=== PATIENT | female | born 1990 | race Caucasian/White ===

== ENCOUNTER 2017-01-22 21:47 | Emergency (ER) | payer SELFPAY ==
[~2017-01-22] VITALS: Ht 160 cm; Wt 88.6 kg
[~2017-01-22 21:47] MED LIST: NO HOME MEDICATIONS; PRENATAL VITAMI1 TA5 PO; TYLENOL 325MG325 MG PO
[2017-01-22 22:01] VITALS: TEMP 98.6
[2017-01-22] MEDS ORDERED: KLONOPIN 0.5MG0.5 MG PO (22:04)
[2017-01-22 22:54] LABS: PH 5 (5-8); URINE APPEARANCE Hazy; URINE BACTERIA Rare /hpf; URINE BILIRUBIN Negative (NEGATIVE); URINE BLOOD 2+ (NEGATIVE); URINE COLOR Yellow; URINE GLUCOSE Negative (NEGATIVE); URINE KETONE Negative (NEGATIVE); URINE RBC 0-2 /hpf; URINE UROBILINOGEN Negative (NEGATIVE)
[2017-01-22 22:59] LABS: BASO # 0.1 (0.0-0.2); BASO % 0.6 % (0.0-2.0); EOS # 0.2 (0.0-0.7); EOS % 1.3 % (0-4.0); GRAN # 7.2 (1.4-6.5); GRAN % 60.8 % (42.2-75.2); HEMATOCRIT 42.5 % (37.0-47.0); HEMOGLOBIN 14.8 g/dl (12.5-16.0); LYMPH # 3.5 (1.2-3.4); LYMPH % 29.8 % (20.0-51.0); MEAN CELL VOLUME 87 fl (80.0-100.0); MEAN CORPUSCULAR HEMOGLOBIN 30 pg (27.0-31.0); MEAN CORPUSCULAR HGB CONC 35 g/dl (33.0-37.0); MEAN PLATELET VOLUME 9.2 fl (7.4-10.4); MONO # 0.9 (0.1-0.6); MONO % 7.2 % (1.7-9.3); PLATELET COUNT 334 K/mm3 (130-400); RED BLOOD COUNT 4.89 M/mm3 (4.10-5.30); REDCELL DISTRIBUTION WIDTH-CV 12.3 % (11.5-14.5); WHITE BLOOD COUNT 11.9 K/mm3 (4.8-10.8)
[2017-01-22 23:11] LABS: ADJUSTED CALCIUM 8.8 mg/dL (8.4-10.2); ALANINE AMINOTRANSFERASE 21 U/L (9-52); ALBUMIN 4.2 gm/dL (3.5-5.0); ALKALINE PHOSPHATASE 89 U/L (50-136); ANION GAP 11 mmol/L (7-16); BILIRUBIN,TOTAL 0.6 mg/dL (0.0-1.0); BLOOD UREA NITROGEN 13 mg/dL (7-17); CARBON DIOXIDE 26 mmol/L (22-30); CHLORIDE 103 mmol/L (98-107); CREATININE, serum 0.73 mg/dL (0.52-1.25); GLUCOSE 86 mg/dL (74-106); LIPASE 178 U/L (23-300); POTASSIUM 3.7 mmol/L (3.4-5.0); SODIUM 140 mmol/L (137-145); TOTAL PROTEIN 7.3 gm/dL (6.4-8.2)
[2017-01-22 23:12] LABS: C-REACTIVE PROTEIN < 0.5 mg/dL (0.0-0.9)
[2017-01-23 00:45] VITALS: BP 130/67; PULSE 72
[2017-01-23] MEDS ORDERED: NORCO 325 MG-51 TAB PO (19:13)
[2017-01-23] MEDS ORDERED: ZOFRAN 4MG T4 MG/TAB PO (19:14)
[2017-01-23] MEDS ORDERED: NEXIUM 20MG20 MG PO (21:12)
[2017-01-23] MEDS ORDERED: PHENERGAN 25 TA25 MG PO (21:14)
== END 2017-01-23 00:55 | disposition home or self-care (01) ==
LOC: COL.ER 21:47
PROVIDERS: Emergency Medicine
DX: R10.32 Left lower quadrant pain (principal); R19.7 Diarrhea, unspecified; F41.9 Anxiety disorder, unspecified; R63.0 Anorexia
CPT/HCPCS: J2270; J2405; J7030; Q9967

== ENCOUNTER 2017-01-23 19:08 | Emergency (ER) | payer SELFPAY ==
[~2017-01-23] VITALS: Ht 160 cm; Wt 88.6 kg
[~2017-01-23 19:08] MED LIST changes: +KLONOPIN 0.5MG0.5 MG PO
[2017-01-23 19:10] VITALS: TEMP 98.5
[2017-01-23] MEDS ORDERED: NORCO 325 MG-51 TAB PO (19:13)
[2017-01-23] MEDS ORDERED: ZOFRAN 4MG T4 MG/TAB PO (19:14)
[2017-01-23 19:55] LABS: BASO # 0.1 (0.0-0.2); BASO % 0.5 % (0.0-2.0); EOS # 0.1 (0.0-0.7); EOS % 1.4 % (0-4.0); GRAN # 6.2 (1.4-6.5); GRAN % 61.5 % (42.2-75.2); HEMATOCRIT 40.9 % (37.0-47.0); LYMPH # 3.1 (1.2-3.4); LYMPH % 30.9 % (20.0-51.0); MEAN CELL VOLUME 89 fl (80.0-100.0); MEAN CORPUSCULAR HEMOGLOBIN 30 pg (27.0-31.0); MEAN CORPUSCULAR HGB CONC 34 g/dl (33.0-37.0); MEAN PLATELET VOLUME 9.7 fl (7.4-10.4); MONO # 0.5 (0.1-0.6); MONO % 5.4 % (1.7-9.3); PLATELET COUNT 324 K/mm3 (130-400); RED BLOOD COUNT 4.62 M/mm3 (4.10-5.30); REDCELL DISTRIBUTION WIDTH-CV 12.5 % (11.5-14.5); WHITE BLOOD COUNT 10.1 K/mm3 (4.8-10.8)
[2017-01-23 20:20] LABS: ADJUSTED CALCIUM 8.9 mg/dL (8.4-10.2); ALANINE AMINOTRANSFERASE 25 U/L (9-52); ALKALINE PHOSPHATASE 80 U/L (50-136); ANION GAP 8 mmol/L (7-16); BILIRUBIN,TOTAL 0.4 mg/dL (0.0-1.0); BLOOD UREA NITROGEN 9 mg/dL (7-17); C-REACTIVE PROTEIN < 0.5 mg/dL (0.0-0.9); CALCIUM 8.9 mg/dL (8.4-10.2); CARBON DIOXIDE 25 mmol/L (22-30); CHLORIDE 104 mmol/L (98-107); CREATININE, serum 0.68 mg/dL (0.52-1.25); GLUCOSE 87 mg/dL (74-106); POTASSIUM 4.4 mmol/L (3.4-5.0); SODIUM 138 mmol/L (137-145); TOTAL PROTEIN 6.8 gm/dL (6.4-8.2)
[2017-01-23] MEDS ORDERED: NEXIUM 20MG20 MG PO (21:12)
[2017-01-23] MEDS ORDERED: PHENERGAN 25 TA25 MG PO (21:14)
[2017-01-23 21:26] VITALS: BP 122/70; PULSE 68
== END 2017-01-23 21:27 | disposition home or self-care (01) ==
LOC: COL.ER 19:08
PROVIDERS: Emergency Medicine
DX: R10.32 Left lower quadrant pain (principal); R10.12 Left upper quadrant pain; R19.7 Diarrhea, unspecified; R63.0 Anorexia; R11.2 Nausea with vomiting, unspecified
CPT/HCPCS: C9113; J2550; J7030

== ENCOUNTER 2017-06-03 06:46 | Emergency (ER) | payer SELFPAY ==
[~2017-06-03] VITALS: Ht 160 cm; Wt 86.4 kg
[~2017-06-03 06:46] MED LIST changes: +NEXIUM 20MG20 MG PO; +NORCO 325 MG-51 TAB PO; +PHENERGAN 25 TA25 MG PO; +ZOFRAN 4MG T4 MG/TAB PO
[2017-06-03 06:51] VITALS: BP 132/77; TEMP 97.8
[2017-06-03] MEDS ORDERED: DAZIDOX10 MG PO (06:53)
[2017-06-03] MEDS ORDERED: ZITHROMAX Z PA250 MG PO (07:19)
[2017-06-03 07:30] VITALS: PULSE 83
== END 2017-06-03 07:35 | disposition home or self-care (01) ==
LOC: COL.ER 06:46
DX: J40 Bronchitis, not specified as acute or chronic (principal); F17.210 Nicotine dependence, cigarettes, uncomplicated

== ENCOUNTER 2017-06-19 09:34 | Emergency (ER) | payer SELFPAY ==
[~2017-06-19] VITALS: Ht 160 cm; Wt 86.4 kg
[~2017-06-19 09:34] MED LIST changes: +DAZIDOX10 MG PO; +ZITHROMAX Z PA250 MG PO
[2017-06-19 09:49] VITALS: BP 154/86; TEMP 98.2
[2017-06-19 10:57] LABS: BASO # 0.1 (0.0-0.2); BASO % 0.4 % (0.0-2.0); EOS # 0.1 (0.0-0.7); EOS % 0.4 % (0-4.0); GRAN # 8.8 (1.4-6.5); GRAN % 75.4 % (42.2-75.2); HEMOGLOBIN 15.2 g/dl (12.5-16.0); LYMPH # 2.3 (1.2-3.4); LYMPH % 19.5 % (20.0-51.0); MEAN CELL VOLUME 91 fl (80.0-100.0); MEAN CORPUSCULAR HEMOGLOBIN 31 pg (27.0-31.0); MEAN CORPUSCULAR HGB CONC 34 g/dl (33.0-37.0); MEAN PLATELET VOLUME 9.7 fl (7.4-10.4); MONO # 0.5 (0.1-0.6); PLATELET COUNT 260 K/mm3 (130-400); RED BLOOD COUNT 4.93 M/mm3 (4.10-5.30); WHITE BLOOD COUNT 11.7 K/mm3 (4.8-10.8)
[2017-06-19 11:08] LABS: ADJUSTED CALCIUM 8.8 mg/dL (8.4-10.2); ALANINE AMINOTRANSFERASE 26 U/L (9-52); ALBUMIN 4.5 gm/dL (3.5-5.0); ALKALINE PHOSPHATASE 83 U/L (50-136); ANION GAP 10 mmol/L (7-16); BILIRUBIN,TOTAL 0.6 mg/dL (0.0-1.0); BLOOD UREA NITROGEN 13 mg/dL (7-17); C-REACTIVE PROTEIN < 0.5 mg/dL (0.0-0.9); CALCIUM 9.2 mg/dL (8.4-10.2); CARBON DIOXIDE 25 mmol/L (22-30); CHLORIDE 105 mmol/L (98-107); CREATININE, serum 0.72 mg/dL (0.52-1.25); GLUCOSE 101 mg/dL (74-106); POTASSIUM 3.9 mmol/L (3.4-5.0); SODIUM 139 mmol/L (137-145); TOTAL PROTEIN 7.5 gm/dL (6.4-8.2)
[2017-06-19] MEDS ORDERED: FLEXERIL 1010 MG/TAB PO (12:05)
[2017-06-19 12:24] VITALS: PULSE 65
== END 2017-06-19 12:24 | disposition home or self-care (01) ==
LOC: COL.ER 09:34
PROVIDERS: Physician Assistant
DX: G43.909 Migraine, unspecified, not intractable, without status migrainosus (principal); M54.2 Cervicalgia; F90.9 Attention-deficit hyperactivity disorder, unspecified type; F41.9 Anxiety disorder, unspecified; F31.9 Bipolar disorder, unspecified; F17.210 Nicotine dependence, cigarettes, uncomplicated
CPT/HCPCS: J1200; J2270; J2765; J7030

== ENCOUNTER 2022-10-27 20:04 | Emergency (ER) | payer MEDICAID ==
[~2022-10-27] VITALS: Ht 162.6 cm; Wt 67.7 kg
[~2022-10-27 20:04] MED LIST changes: +FLEXERIL 1010 MG/TAB PO
[2022-10-27 20:07] VITALS: TEMP 97.6
[2022-10-27 20:23] LABS: COLLECTION METHOD CLEAN CATCH
[2022-10-27 20:28] LABS: BASO # 0.1 K/mm3 (0.0-0.2); BASO % 0.6 % (0.0-2.0); EOS # 0.1 K/mm3 (0.0-0.7); EOS % 0.7 % (0.0-4.0); GRAN # 6.9 K/mm3 (1.4-6.5); GRAN % 64.3 % (42.2-75.2); HEMATOCRIT 40.4 % (37.0-47.0); HEMOGLOBIN 13.9 g/dl (12.5-16.0); LYMPH # 3.2 K/mm3 (1.2-3.4); LYMPH % 29.6 % (20.0-51.0); MEAN CELL VOLUME 86 fl (80.0-100.0); MEAN CORPUSCULAR HEMOGLOBIN 29 pg (27-31); MEAN CORPUSCULAR HGB CONC 34 g/dl (33.0-37.0); MONO # 0.5 K/mm3 (0.1-0.6); MONO % 4.6 % (1.7-9.3); PLATELET COUNT 338 K/mm3 (130-400); RED BLOOD COUNT 4.72 M/mm3 (4.10-5.30); REDCELL DISTRIBUTION WIDTH-CV 12.6 % (11.5-14.5)
[2022-10-27 20:29] LABS: PH 5.5 (5.0-8.5); URINE APPEARANCE Clear (CLEAR/HAZY); URINE BLOOD Negative (NEGATIVE); URINE COLOR Yellow (YELLOW); URINE GLUCOSE Negative (NEGATIVE); URINE KETONE Negative (NEGATIVE); URINE NITRATE Negative (NEGATIVE); URINE PROTEIN(semi-quant) Negative (NEGATIVE); URINE UROBILINOGEN 0.2 E.U/dL (0.2-1.0)
[2022-10-27 20:30] LABS: SQUAMOUS EPITHELIAL 0-2 /hpf (0-10); URINE BACTERIA Moderate /hpf (NONE SEEN); URINE RBC 0-2 /hpf (0-2)
[2022-10-27 20:47] LABS: ALANINE AMINOTRANSFERASE 11 U/L (0-55); ALBUMIN 4.6 gm/dL (3.5-5.0); ALKALINE PHOSPHATASE 68 U/L (40-150); ANION GAP 12 mmol/L (7-16); AST,SGOT 19 U/L (5-34); BILIRUBIN,TOTAL 0.8 mg/dL (0.2-1.2); BLOOD UREA NITROGEN 5 mg/dL (7-19); CARBON DIOXIDE 24 mmol/L (22-29); CHLORIDE 102 mmol/L (98-107); GLUCOSE 83 mg/dL (70-99); LIPASE 66 U/L (8-78); POTASSIUM 3.3 mmol/L (3.5-4.5); SODIUM 138 mmol/L (136-145); TOTAL PROTEIN 7.2 gm/dL (6.2-8.1)
[2022-10-27 20:52] LABS: C-REACTIVE PROTEIN < 0.02 mg/dL (0.00-0.50)
[2022-10-27 22:27] VITALS: BP 111/66; PULSE 80
== END 2022-10-27 22:41 | disposition home or self-care (01) ==
LOC: COL.ER 20:04
PROVIDERS: Emergency Medicine
DX: I82.890 Acute embolism and thrombosis of other specified veins (principal); F17.200 Nicotine dependence, unspecified, uncomplicated; Z91.040 Latex allergy status; Z88.6 Allergy status to analgesic agent; Z28.310 Unvaccinated for COVID-19
CPT/HCPCS: J1885; J7030; Q9967